=== PATIENT | female | born 1940 | race Caucasian/White ===

== ENCOUNTER 2016-06-29 09:38 | Inpatient (IN) | payer OTHER, MEDICAID ==
[~2016-06-29] VITALS: Ht 162.6 cm; Wt 58.9 kg
[2016-06-29] MEDS ORDERED: METHYLPRED SOD SUCC 125 MG/2 ML VIAL ONE (11:28)
[2016-06-29] MEDS ORDERED: DUONEB INH ONE ×2 (11:51)
[2016-06-29] MEDS ORDERED: NEB-ALBUTEROL 2.5 MG/3 ML INH PRN (14:15)
[2016-06-29] MEDS: AZITHROMYCIN 500 MG in SODIUM CHLORIDE 0.9% 250 ML IV SCH (14:15)
[2016-06-29] MEDS ORDERED: METHYLPRED SOD SUCC 40 MG VIAL IV SCH (14:15)
[2016-06-29] MEDS: DUONEB INH SCH ×2 (15:00→22:33)
[2016-06-29] MEDS: METHYLPRED SOD SUCC 40 MG VIAL IV SCH ×2 (16:00→23:01)
[2016-06-29 16:30] VITALS: BP_SYST 135; BP_SYST 145; RESP 20; TEMP 97.3
[2016-06-29 16:35] VITALS: Ht 162.6 cm; Wt 58.9 kg
[2016-06-29] MEDS: NEB-BROVANA 15 MCG/2 ML INH SCH (17:04)
[2016-06-29] MEDS: NEB-BUDESONIDE 0.5 MG INH SCH (17:04)
[2016-06-29 17:06] VITALS: RESP 24
[2016-06-29] MEDS: **NOTE TO NURSE XX SCH (17:25)
[2016-06-29 19:20] VITALS: BP_SYST 98; RESP 20; TEMP 97.7
[2016-06-29 19:53] VITALS: BP_SYST 122
[2016-06-29 23:00] VITALS: BP_SYST 123; RESP 20; TEMP 98
[2016-06-30] MEDS: **NOTE TO NURSE XX SCH (05:25)
[2016-06-30] MEDS: NEB-BROVANA 15 MCG/2 ML INH SCH (07:18)
[2016-06-30] MEDS: DUONEB INH SCH ×3 (07:18→14:53)
[2016-06-30] MEDS: NEB-BUDESONIDE 0.5 MG INH SCH (07:18)
[2016-06-30 07:42] VITALS: BP_SYST 143; RESP 18; TEMP 97.8
[2016-06-30] MEDS ORDERED: ENOXAPARIN 40 MG/0.4 ML SYR SUBQ SCH (09:00)
[2016-06-30] MEDS: METHYLPRED SOD SUCC 40 MG VIAL IV SCH (10:52)
[2016-06-30] MEDS: AZITHROMYCIN 500 MG in SODIUM CHLORIDE 0.9% 250 ML IV SCH (10:53)
[2016-06-30 12:19] VITALS: BP_SYST 132; RESP 20; TEMP 98
[2016-06-30 13:32] VITALS: BP_SYST 132; RESP 20; TEMP 98
[2016-06-30 14:45] VITALS: BP_SYST 156; TEMP 98
[2016-06-30 15:06] VITALS: BP_SYST 156; RESP 20; TEMP 98
== END 2016-06-30 15:22 | disposition home or self-care (01) | DRG 192 ==
LOC: ENRESERVTM → ENRESERVDT → ER 09:38 → ENPENDDIS 14:34 → EMR 14:34 → 4NT 16:12
PROVIDERS: ADMIT Family Medicine; ATTEND Family Medicine
DX: J44.1 Chronic obstructive pulmonary disease with (acute) exacerbation (principal); Z87.891 Personal history of nicotine dependence
CPT/HCPCS: 36415; 36600; 71010; 80048; 80053; 82553; 82803; 83880; 84484; 85025; 93005; 94640; 94664; 94799; 96374